=== PATIENT | male | born 1950 | race Caucasian/White ===

== ENCOUNTER → 2016-09-10 | Outpatient (REF) | payer OTHER ==
[2016-09-10 11:45] LABS: ALBUMIN 3.8 GM/DL (3.2-5.2); ALBUMIN/GLOBULIN RATIO 1.31 (1.00-1.93); ALKALINE PHOSPHATASE 87 U/L (45-117); ALT/SGPT 39 U/L (12-78); ANION GAP 8 MEQ/L (8-16); AST/SGOT 16 U/L (15-37); BILIRUBIN,TOTAL 0.6 MG/DL (0.2-1.0); BLOOD UREA NITROGEN 20 MG/DL (7-18); CALCIUM LEVEL 9.6 MG/DL (8.8-10.2); CARBON DIOXIDE LEVEL 29 MEQ/L (21-32); CHLORIDE LEVEL 105 MEQ/L (98-107); CHOLESTEROL LEVEL 201 MG/DL (<200); CREATININE FOR GFR 1.17 MG/DL (0.70-1.30); GLOMERULAR FILTRATION RATE > 60.0 (>49); GLUCOSE, FASTING 98 MG/DL (80-110); SODIUM LEVEL 142 MEQ/L (136-145); TOTAL PROTEIN 6.7 GM/DL (6.4-8.2); TRIGLYCERIDES LEVEL 145 MG/DL (<150)
[2016-09-10 11:47] LABS: MEAN CORPUSCULAR HEMOGLOBIN 31.3 pg (27.0-33.0); MEAN CORPUSCULAR HGB CONC 35.5 g/dl (32.0-36.5); MEAN CORPUSCULAR VOLUME 88.3 fl (80.0-96.0); RED CELL DISTRIBUTION WIDTH 12.7 % (11.5-14.5); WHITE BLOOD COUNT 6.7 K/mm3 (4.0-10.0)
== END ==
LOC: M SFHCLERA 09:28
PROVIDERS: ATTEND Family Medicine
DX: I10 Essential (primary) hypertension (principal); E78.2 Mixed hyperlipidemia

== ENCOUNTER → 2017-01-05 | Outpatient (CLI) | payer OTHER | LOC: M SMT 11:57 | PROVIDERS: ATTEND Nurse Practitioner Family | DX: Z12.5 Encounter for screening for malignant neoplasm of prostate (principal) | CPT/HCPCS: 36415; G0103 ==

== ENCOUNTER → 2017-10-06 | Outpatient (CLI) | payer OTHER | LOC: M LRY 12:17 | DX: M79.641 Pain in right hand (principal) | CPT/HCPCS: 73130; G0463 ==

== ENCOUNTER → 2017-10-20 | Outpatient (REF) | payer OTHER ==
[2017-10-20 11:41] LABS: HEMATOCRIT 39.1 % (42.0-52.0); HEMOGLOBIN 13.7 g/dl (14.0-18.0); MEAN CORPUSCULAR HEMOGLOBIN 30.6 pg (27.0-33.0); MEAN CORPUSCULAR VOLUME 87.5 fl (80.0-96.0); PLATELET COUNT, AUTOMATED 178 10^3/uL (150-450); RED BLOOD COUNT 4.47 10^6/uL (4.30-6.10); RED CELL DISTRIBUTION WIDTH 12.9 % (11.5-14.5); WHITE BLOOD COUNT 7.8 10^3/uL (4.0-10.0)
[2017-10-20 11:53] LABS: ESTIMATED AVERAGE GLUCOSE 111 MG/DL (60-110); HEMOGLOBIN A1c 5.5 %
[2017-10-20 12:16] LABS: ALBUMIN 3.6 GM/DL (3.2-5.2); ALBUMIN/GLOBULIN RATIO 1.16 (1.00-1.93); ALKALINE PHOSPHATASE 67 U/L (45-117); ALT/SGPT 32 U/L (12-78); ANION GAP 6 MEQ/L (8-16); AST/SGOT 17 U/L (7-37); BILIRUBIN,TOTAL 0.5 MG/DL (0.2-1.0); BLOOD UREA NITROGEN 28 MG/DL (7-18); CARBON DIOXIDE LEVEL 30 MEQ/L (21-32); CHLORIDE LEVEL 104 MEQ/L (98-107); CHOLESTEROL LEVEL 124 MG/DL (<200); CHOLESTEROL RISK RATIO 2.883 (<5); CREATININE FOR GFR 1.16 MG/DL (0.70-1.30); GLOMERULAR FILTRATION RATE > 60.0 (>49); GLUCOSE, FASTING 94 MG/DL (70-100); HDL CHOLESTEROL 43 MG/DL (>40); NON-HDL-C 81 MG/DL; POTASSIUM SERUM 4.4 MEQ/L (3.5-5.1); RHEUMATOID FACTOR QUANT < 10.0 IU/ML (0-15.0); SODIUM LEVEL 140 MEQ/L (136-145); THYROID STIMULATING HORMONE 0.737 uIU/ML (0.358-3.740); TOTAL PROTEIN 6.7 GM/DL (6.4-8.2); TRIGLYCERIDES LEVEL 65 MG/DL (<150)
[2017-10-20 12:18] LABS: MALB URINE SIEMENS < 5.0 MG/L; MAU/CREAT RATIO 4.4 MCG/MG (0.0-30.0)
[2017-10-20 12:21] LABS: ERYTHROCYTE SEDIMENTATION RATE 15 mm/hr (0-20)
[2017-10-23 00:07] LABS: CYCLIC CITRULLINATED PEPTIDE 7 units (0-19)
[2017-10-23 00:07] LABS: ANTINUCLEAR ANTIBODIES DIRECT Negative (Negative)
== END ==
LOC: M SFHCLERA 09:41
DX: M79.641 Pain in right hand (principal); E66.01 Morbid (severe) obesity due to excess calories; Z79.899 Other long term (current) drug therapy
CPT/HCPCS: 84443

== ENCOUNTER → 2018-02-22 | Outpatient (CLI) | payer OTHER ==
[2018-02-22 19:36] LABS: PSA SCREENING 1.95 NG/ML (< 4.0)
== END ==
LOC: M SMT 15:16
DX: Z12.5 Encounter for screening for malignant neoplasm of prostate (principal)
CPT/HCPCS: G0103

== ENCOUNTER → 2018-05-06 | Outpatient (REF) | payer OTHER ==
[2018-05-06 18:27] LABS: BASO % 0.3 % (0.0-1.0); EOS # 0.2 10^3/uL (0.0-0.50); EOS % 2.1 % (0.0-3.0); HEMATOCRIT 42.2 % (42.0-52.0); HEMOGLOBIN 14.7 g/dl (13.5-17.5); IMMATURE GRANULOCYTE % 0.2 % (0-3.0); LYMPH # 1.9 10^3/uL (1.5-4.5); LYMPH % 21.8 % (24.0-44.0); MEAN CORPUSCULAR HEMOGLOBIN 31.7 pg (27.0-33.0); MEAN CORPUSCULAR HGB CONC 34.8 g/dl (32.0-36.5); MEAN CORPUSCULAR VOLUME 91.1 fl (80.0-96.0); MONO # 0.4 10^3/uL (0.0-0.8); MONO % 4.9 % (0.0-5.0); NEUTROPHILS # 6.3 10^3/uL (1.8-7.7); NEUTROPHILS % 70.7 % (36.0-66.0); PLATELET COUNT, AUTOMATED 187 10^3/uL (150-450); RED BLOOD COUNT 4.63 10^6/uL (4.30-6.10); RED CELL DISTRIBUTION WIDTH 12.6 % (11.5-14.5); WHITE BLOOD COUNT 8.9 10^3/uL (4.0-10.0)
== END ==
LOC: M SFHCLERA 12:31
DX: D64.9 Anemia, unspecified (principal)
CPT/HCPCS: 85025

== ENCOUNTER → 2018-10-25 | Outpatient (REF) | payer OTHER ==
[2018-10-25 16:43] LABS: BASO % 0.2 % (0.0-1.0); EOS # 0.2 10^3/uL (0.0-0.50); EOS % 1.9 % (0.0-3.0); HEMATOCRIT 39.4 % (42.0-52.0); HEMOGLOBIN 13.9 g/dl (13.5-17.5); LYMPH # 1.6 10^3/uL (1.5-4.5); LYMPH % 18.5 % (24.0-44.0); MEAN CORPUSCULAR HEMOGLOBIN 31.4 pg (27.0-33.0); MEAN CORPUSCULAR HGB CONC 35.3 g/dl (32.0-36.5); MEAN CORPUSCULAR VOLUME 88.9 fl (80.0-96.0); MONO # 0.4 10^3/uL (0.0-0.8); MONO % 5.1 % (0.0-5.0); NEUTROPHILS # 6.2 10^3/uL (1.8-7.7); NEUTROPHILS % 74.1 % (36.0-66.0); PLATELET COUNT, AUTOMATED 181 10^3/uL (150-450); RED BLOOD COUNT 4.43 10^6/uL (4.30-6.10); WHITE BLOOD COUNT 8.4 10^3/uL (4.0-10.0)
[2018-10-25 16:45] LABS: CHOLESTEROL RISK RATIO 3.285 (<5)
[2018-10-25 16:49] LABS: HEMOGLOBIN A1c 5.6 %
[2018-10-25 17:18] LABS: CREATININE, URINE 25.4 MG/DL; MALB URINE SIEMENS < 5.0 MG/L; MAU/CREAT RATIO 19.6 MCG/MG (0.0-30.0)
== END ==
LOC: M SFHCLERA 10:58
PROVIDERS: ATTEND Family Medicine
DX: I10 Essential (primary) hypertension (principal); D64.9 Anemia, unspecified

== ENCOUNTER → 2019-04-21 | Outpatient (REF) | payer MEDICARE ==
[2019-04-21 12:55] LABS: BLOOD UREA NITROGEN 18 MG/DL (7-18); CALCIUM LEVEL 9.3 MG/DL (8.8-10.2); CARBON DIOXIDE LEVEL 31 MEQ/L (21-32); CHLORIDE LEVEL 102 MEQ/L (98-107); GLOMERULAR FILTRATION RATE > 60.0 (>42); GLUCOSE, FASTING 108 MG/DL (70-100); POTASSIUM SERUM 3.8 MEQ/L (3.5-5.1); SODIUM LEVEL 140 MEQ/L (136-145)
== END ==
LOC: M SFHCLERA 10:04
PROVIDERS: ATTEND Family Medicine
DX: I10 Essential (primary) hypertension (principal)

== ENCOUNTER → 2019-11-19 | Outpatient (REF) | payer MEDICARE ==
[2019-11-19 18:24] LABS: ALBUMIN 3.8 GM/DL (3.2-5.2); ALT/SGPT 37 U/L (12-78); BILIRUBIN,TOTAL 0.9 MG/DL (0.2-1.0); BLOOD UREA NITROGEN 24 MG/DL (7-18); CALCIUM LEVEL 9.2 MG/DL (8.8-10.2); CARBON DIOXIDE LEVEL 31 MEQ/L (21-32); CHLORIDE LEVEL 102 MEQ/L (98-107); CHOLESTEROL LEVEL 139 MG/DL (<200); CHOLESTEROL RISK RATIO 3.475 (<5); CREATININE FOR GFR 1.21 MG/DL (0.70-1.30); GLOMERULAR FILTRATION RATE > 60.0 (>42); GLUCOSE, FASTING 95 MG/DL (70-100); HDL CHOLESTEROL 40 MG/DL (>40); LDL CHOLESTEROL 77 MG/DL (<100); NON-HDL-C 99 MG/DL; POTASSIUM SERUM 3.6 MEQ/L (3.5-5.1); SODIUM LEVEL 136 MEQ/L (136-145); TOTAL PROTEIN 7.1 GM/DL (6.4-8.2); TRIGLYCERIDES LEVEL 108 MG/DL (<150)
[2019-11-19 18:53] LABS: HEMOGLOBIN A1c 6.2 %
== END ==
LOC: M SFHCLERA 09:50
PROVIDERS: ATTEND Family Medicine
DX: I10 Essential (primary) hypertension (principal); E66.01 Morbid (severe) obesity due to excess calories; E78.5 Hyperlipidemia, unspecified

== ENCOUNTER → 2020-08-29 | Outpatient (CLI) | payer MEDICARE ==
[~2020-08-29] MED LIST: ATOR40TA75 PO; CHLO50TA PO; LOSA100T50 PO; METO50TA7 PO; MULT-90 PO; SODI5OPD OU; TIMO0.5S29 OU
== END ==
LOC: M LABSMTC 10:11
PROVIDERS: ATTEND Anesthesiology
DX: Z01.812 Encounter for preprocedural laboratory examination (principal); Z20.822 Contact with and (suspected) exposure to COVID-19

== ENCOUNTER 2020-09-03 07:06 | Day surgery (SDC) | payer MEDICARE ==
[~2020-09-03] VITALS: Ht 170.2 cm; Wt 106.6 kg
[~2020-09-03 07:06] MED LIST changes: +NS 1,000 ML IV ONE
--- OUTSIDE RECORDS SUMMARY | 2020-09-03 07:13 | CCD ---
Author Author [facility] Organization [facility] [employer] Address Unknown Phone Unavailable Care Team Providers Care Psychometric Examiner Name Role Phone Krzysztof Green Unavailable PROBLEMS Type Condition ICD9-CM Code UPG83-GH Code Onset Dates Condition S tatus SNOMED Code Notes Problem Adverse effect of angiotensi a-jcflobszim-czjiaq inhibitors, initial encounter T46.4X5A Active 547863464 Problem Erectile dysfunction, unspecified erectile dysfunction typ e N52.9 Active 384530006 Problem Mixed hyperlipidemia E78.2 Active 624052353 Problem Cough R05 Active 103605589 Problem Essential hypertension I10 Active 99188812 Problem Body mass index (BMI) of 35.0-35.9 in adult Z68.35 Active 256926588 Problem Obesity (BMI 35.0-39.9 without comorbidity) E66.9 Active 213528838 Problem Influenza vaccination declined Z28.21 Active 3 44448394 Problem Dyslipidemia E78.5 Active 635402847 Problem Bilateral hearing loss, unspecified hearing loss type H91.93 Active 01859981 Problem Morbid (severe) obesity due to excess calories E66 .01 Active 268760817 Problem Hand arthritis M19.049 Active 023067047 Problem 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 A ctive 2471018568815 Problem Prostate cancer screening Z12.5 Active 776492 002 Problem Arthritis M19.90 Active 7207793 ALLERGIES Allergen (clinical drug ingredient) Drug/Non Drug Allergy do cumented on EMR Reaction Allergy Type Onset Date Status Stanley inhibitor (for allergies use only) dry cough Drug All ergy Active ENCOUNTERS from 1950 to 2020-06-06 Encounter Location Date Provider Diagnosis [facility] [address] [place] [address] May, Krzysztof Green Low blood potassium E87.6 IMMUNIZATIONS Vaccine Route Administration Date Status Influenza (Pharmacy Given) Unknown Jun 28, 2018 Admin istered Influenza (18 yrs & older) Flublok IM Intramuscular May 21, 2020 Administered Zoster 50mcg/0.5mL (Shingrix) Unknown Jun 22, 2018 Ad ministered Influenza (High Dose 65 & up) Unknown May 02, 2017 Ad ministered Pneumococcal Adult 0.5mL (Pneumovax 23) IM Intramuscular May 21, 2020 Administered TDAP 0.5mL (Boostrix) IM Intramuscular May 02, 2019 Administe red Pneumococcal 0.5mL (Prevnar 13) IM Intramuscular November 03, 2018 Administered Influenza (6mo & up) Fluzone Unknown May 16, 2016 Adm inistered SOCIAL HISTORY Tobacco Use: Social History Observation Description Date Details (start date - stop date) Never Smoker Sex Assigned At : Social History Observation Description Sex Assigned At Unknown Education: Question Answer Notes Level of Education: High School Audit Question Answer Notes Total Score: 0 Interpretation: Alcohol Education Language: Question Answer Notes Languages spoken: Divehi Yazidism: Question Answer Notes Yazidism 21 Taoism Drug and Alcohol Question Answer Notes Total Score: 0 Interpretation: No problems reported Alcohol Screening: Question Answer Notes Did you have a drink containing alcohol in the past year? No Points 0 Interpretation Negative BMI Care Goal Follow-Up Question Answer Notes Above Normal BMI Follow-Up Dietary management educatio n, guidance, and counseling Tobacco Use: Question Answer Notes Are you a: never smoker REASON FOR REFERRAL No Information VITAL SIGNS No information MEDICATIONS Medication SIG (Take, Route, Frequency, Duration) Start Date En d Date Status Sodium Chloride (Hypertonic) 1 drop into each eye Ophthalmic Twice a day Active Chlorthalidone 50 MG 1 tablet in the morning Orally Once a day Active Metoprolol Tartrate 50 MG 1 tablet with food Twice a d ay Orally 90 day(s) Orally Twice a day Active Timolol Maleate 0.5 % 1 drop into each eye Ophthalmic Once a day Active Maria Fernanda 128 5 % 1 drop into each eye Ophthalmic Once a day Active Atorvastatin Calcium 40 MG 1 tablet Orally before bedtime Active Shingrix 50 mcg/0.5 mL As Directed Intramuscular as directed for 2 doses Nov, Not-Taking Multivitamin Adult - Orally May, Active Losartan Potassium 100 MG 1 tablet Orally Once a day Active Viagra 100 MG 1 tablet as needed Orally On ce a day-start with 1/4 tablet and titrate up as needed December, Not-Taking PROCEDURES No Information RESULTS No Results REASON FOR VISIT Lab results MEDICAL (GENERAL) HISTORY Type Description Date Medical History Hyperlipidemea Medical History Erectile dysfunction Medical History HTN, goal 140/90 Medical History short leg right, lift 1 inch a 1/4 Medical History Dry eyes Surgical History right knee replacement 03/18/16 Surgical History fx both femers 05/1966 Surgical History rx jaw 05/1966 Surgical History fx arm left 05/1966 Surgical History fx skull 05/1966 Surgical History colonoscopy - weld 2014 Hospitalization History weld - hernia Goals Section No Information Health Concerns No Information MEDICAL EQUIPMENT No Information MENTAL STATUS No Information FUNCTIONAL STATUS No Information ASSESSMENTS Encounter Date Diagnosis Notes May, Low blood potassium (ICD-10 - E87.6) PLAN OF TREATMENT Future Test Test Name Order Date Basic Metabolic Profile (BMP) [id number] Next Appt Details Provider Name:Krzysztof Green, 2020-11-20 01:00:00 PM, [address] [place], [address], Insurance Providers Payer Name Payer Address Payer Phone Insured Name Patient Relati onship to Insured Coverage Start Date Coverage End Date Responsa PLANS [address] [address] [facility] [phone] [employer]
--- OUTSIDE RECORDS SUMMARY | 2020-09-03 07:13 | CCD ---
Author Author [facility] Organization [facility] Address Unknown Phone Unavailable Care Team Providers Care Range Examiner Name Role Phone Pati Mendez MD Unavailable Unavailable Pati Mendez MD Unavailable Unavailable Pati Mendez MD Unavailable Unavailable Pati Mendez MD Unavailable Unavailable Pati Mendez MD Unavailable Unavailable Pati Mendez MD Unavailable Unavailable Pati Mendez MD Unavailable Unavailable Pati Mendez MD Unavailable Unavailable Pati Mendez MD Unavailable Unavailable Pati Mendez MD Unavailable Unavailable Pati Mendez MD Unavailable Unavailable Pati Mendez MD Unavailable Unavailable Pati Mendez MD Unavailable Unavailable Pati Mendez MD Unavailable Unavailable AbrissPati MD Unavailable Unavailable AbrissPati MD Unavailable Unavailable AbrissPati MD Unavailable Unavailable AbrissPati MD Unavailable Unavailable Buniak, Borevans NEWSOME Unavailable Unavailable Buniak, Borys Unavailable Unavailable Buniak, Borys Unavailable Unavailable Buniak, Borys Unavailable Unavailable Buniak, Borys MD Unavailable Unavailable Buniak, Borys MD Unavailable Unavailable Buniak, Borys Unavailable Unavailable Buniak, Borys Unavailable Unavailable Buniak, Borys MD Unavailable Unavailable Buniak, Borys MD Unavailable Unavailable Buniak, Borys MD Unavailable Unavailable Buniak, Borys MD Unavailable Unavailable Buniak, Borys MD Unavailable Unavailable Buniak, Borys MD Unavailable Unavailable Buniak, Borys MD Unavailable Unavailable Buniak, Borys MD Unavailable Unavailable Buniak, Borys MD Unavailable Unavailable Buniak, Borys MD Unavailable Unavailable Buniak, Borys MD Unavailable Unavailable Buniak, Borys MD Unavailable Unavailable Buniak, Borys Unavailable Unavailable Buniak, Borys MD Unavailable Unavailable Buniak, Borys MD Unavailable Unavailable Buniak, Borys MD Unavailable Unavailable Buniak, Borys MD Unavailable Unavailable Buniak, Borys MD Unavailable Unavailable Buniak, Borys MD Unavailable Unavailable Buniak, Borys Unavailable Unavailable Buniak, Borys MD Unavailable Unavailable Buniak, Borys Unavailable Unavailable Buniak, Borys MD Unavailable Unavailable Buniak, Borys Unavailable Unavailable Buniak, Borys Unavailable Unavailable Buniak, Borys Unavailable Unavailable Buniak, Borys Unavailable Unavailable Buniak, Borys Unavailable Unavailable Buniak, Borys Unavailable Unavailable Buniak, Borys MD Unavailable Unavailable Buniak, Borys MD Unavailable Unavailable Buniak, Borys Unavailable Unavailable Buniak, Borys Unavailable Unavailable Buniak, Borys Unavailable Unavailable Buniak, Borys Unavailable Unavailable Buniak, Borys Unavailable Unavailable Buniak, Borys Unavailable Unavailable Buniak, Borys Unavailable Unavailable Buniak, Borys Unavailable Unavailable Buniak, Borys Unavailable Unavailable Buniak, Borys Unavailable Unavailable Buniak, Borys Unavailable Unavailable Buniak, Borys Unavailable Unavailable Buniak, Borys MD Unavailable Unavailable Buniak, Borys MD Unavailable Unavailable Buniak, Borys MD Unavailable Unavailable Buniak, Borys MD Unavailable Unavailable Buniak, Borys MD Unavailable Unavailable Buniak, Borys MD Unavailable Unavailable Buniak, Borys MD Unavailable Unavailable Buniak, Borys MD Unavailable Unavailable Buniak, Borys MD Unavailable Unavailable Buniak, Borys MD Unavailable Unavailable Buniak, Borys MD Unavailable Unavailable Buniak, Borys MD Unavailable Unavailable Buniak, Borys MD Unavailable Unavailable Buniak, Borys MD Unavailable Unavailable Buniak, Borys MD Unavailable Unavailable Buniak, Borys MD Unavailable Unavailable Buniak, Borys MD Unavailable Unavailable Buniak, Borys MD Unavailable Unavailable Buniak, Borys MD Unavailable Unavailable Buniak, Borys MD Unavailable Unavailable Buniak, Borys MD Unavailable Unavailable Buniak, Borys MD Unavailable Unavailable Buniak, Borys MD Unavailable Unavailable Buniak, Borys MD Unavailable Unavailable Buniak, Borys MD Unavailable Unavailable Buniak, Borys MD Unavailable Unavailable Buniak, Borys MD Unavailable Unavailable Buniak, Borys MD Unavailable Unavailable Buniak, Borys MD Unavailable Unavailable Buniak, Borys MD Unavailable Unavailable Buniak, Borys MD Unavailable Unavailable Buniak, Borys MD Unavailable Unavailable Buniak, Borys MD Unavailable Unavailable Buniak, Borys MD Unavailable Unavailable Buniak, Borys MD Unavailable Unavailable Buniak, Borys MD Unavailable Unavailable Buniak, Borys MD Unavailable Unavailable Buniak, Borys MD Unavailable Unavailable Buniak, Borys MD Unavailable Unavailable Buniak, Borys MD Unavailable Unavailable Buniak, Borys MD Unavailable Unavailable Buniak, Borys Unavailable Unavailable Buniak, Borys MD Unavailable Unavailable RAN PERAZA MD Unavailable Unavailable RAN PERAZA MD Unavailable Unavailable RAN PERAZA MD Unavailable Unavailable RAN PERAZA MD Unavailable Unavailable RAN PERAZA MD Unavailable Unavailable RAN PERAZA MD Unavailable Unavailable RAN PERAZA MD Unavailable Unavailable RAN PERAZA MD Unavailable Unavailable RAN PERAZA MD Unavailable Unavailable RAN PERAZA MD Unavailable Unavailable RAN PERAZA MD Unavailable Unavailable RAN PERAZA MD Unavailable Unavailable RAN PERAZA MD Unavailable Unavailable RAN PERAZA MD Unavailable Unavailable PERAZARAN MD Unavailable Unavailable PERAZARAN MD Unavailable Unavailable PERAZARAN MD Unavailable Unavailable PERAZARAN MD Unavailable Unavailable PERAZA, RAN NORTON MD Unavailable Unavailable PERAZA, RAN NORTON MD Unavailable Unavailable PERAZARAN MD Unavailable Unavailable PERAZARAN MD Unavailable Unavailable PERAZARAN MD Unavailable Unavailable PERAZARAN MD Unavailable Unavailable PERAZARAN MD Unavailable Unavailable PERAZARAN MD Unavailable Unavailable PERAZARAN MD Unavailable Unavailable PERAZA, RAN NORTON MD Unavailable Unavailable PERAZARAN MD Unavailable Unavailable PERAZA, RAN NORTON MD Unavailable Unavailable PERAZARAN MD Unavailable Unavailable PERAZA, RAN NORTON MD Unavailable Unavailable PERAZA, RAN NORTON MD Unavailable Unavailable PERAZA, RAN NORTON MD Unavailable Unavailable PERAZARAN MD Unavailable Unavailable PERAZARAN MD Unavailable Unavailable PERAZARAN MD Unavailable Unavailable PERAZARAN MD Unavailable Unavailable PERAZARAN MD Unavailable Unavailable PERAZARAN ONEILL MD Unavailable Unavailable Shambo, Geovanny Borja MD Unavailable Unavailable Shambo, Geovanny Borja MD Unavailable Unavailable Shambo, Geovanny Borja MD Unavailable Unavailable Shambo, Geovanny Borja MD Unavailable Unavailable Shambo, Geovanny Borja MD Unavailable Unavailable Shambo, Geovanny Borja MD Unavailable Unavailable Shambo, Geovanny Borja MD Unavailable Unavailable Shambo, Geovanny Borja MD Unavailable Unavailable Shambo, Geovanyn Borja MD Unavailable Unavailable Shambo, Geovanny Borja MD Unavailable Unavailable Shambo, Geovanny Borja MD Unavailable Unavailable Shambo, Geovanny Borja MD Unavailable Unavailable Shambo, Geovanny Borja MD Unavailable Unavailable Shambo, Geovanny Borja MD Unavailable Unavailable Shambo, Geovanny Borja MD Unavailable Unavailable Shambo, Geovanny Borja MD Unavailable Unavailable Shambo, Geovanny Borja MD Unavailable Unavailable Shambo, Geovanny Borja MD Unavailable Unavailable Shambo, Geovanny Borja MD Unavailable Unavailable Shambo, Geovanny Borja MD Unavailable Unavailable Shambo, Geovanny Borja MD Unavailable Unavailable Shambo, Geovanny oBrja MD Unavailable Unavailable Shambo, Geovanny Borja MD Unavailable Unavailable Shambo, Geovanny Borja MD Unavailable Unavailable Shambo, Geovanny oBrja MD Unavailable Unavailable Shambo, Geovanny Borja MD Unavailable Unavailable Shambo, Geovanny Borja MD Unavailable Unavailable Shambo, Geovanny Borja MD Unavailable Unavailable Shambo, Geovanny Borja MD Unavailable Unavailable Shambo, Geovanny Borja MD Unavailable Unavailable Shambo, Geovanny Borja MD Unavailable Unavailable Shambo, Geovanny Borja MD Unavailable Unavailable Shambo, Geovanny Borja MD Unavailable Unavailable Shambo, Geovanny Borja MD Unavailable Unavailable Shambo, Geovanny Borja MD Unavailable Unavailable Shambo, Geovanny Borja MD Unavailable Unavailable Shambo, Geovanny Borja MD Unavailable Unavailable Shambo, Geovanny Borja MD Unavailable Unavailable Shambo, Geovanny Borja MD Unavailable Unavailable Shambo, Geovanny Borja MD Unavailable Unavailable Shambo, Geovanny Borja MD Unavailable Unavailable Shambo, Geovanny Borja MD Unavailable Unavailable Shambo, Geovanny Borja MD Unavailable Unavailable Shambo, Geovanny Borja MD Unavailable Unavailable Shambo, Geovanny Borja MD Unavailable Unavailable Shambo, Geovanny Bojra MD Unavailable Unavailable Shambo, Geovanny Borja MD Unavailable Unavailable Shambo, Geovanny Borja MD Unavailable Unavailable Shambo, Geovanny Borja MD Unavailable Unavailable Shambo, Geovanny Borja MD Unavailable Unavailable Shambo, Geovanny Borja MD Unavailable Unavailable Shambo, Geovanny Borja MD Unavailable Unavailable Shambo, Geovanny Borja MD Unavailable Unavailable Shambo, Geovanny Borja MD Unavailable Unavailable Shambo, Geovanny Borja MD Unavailable Unavailable Shambo, Geovanny Borja MD Unavailable Unavailable Shambo, Geovanny Borja MD Unavailable Unavailable Shambo, Geovanny Borja MD Unavailable Unavailable Shambo, Geovanny Broja MD Unavailable Unavailable Shambo, Geovanny Borja MD Unavailable Unavailable Shambo, Geovanny Borja MD Unavailable Unavailable Shambo, Geovanny Borja MD Unavailable Unavailable Shambo, Geovanny Borja MD Unavailable Unavailable Re-disclosure Warning The records that you are about to access may contain information from federally-assisted alcohol or drug abuse programs. If such information is present, then the following federally mandated warning applies: This information has been disclosed to you from records protected by federal confidentiality rules (42 CFR part 2). The federal rules prohibit you from making any further disclosure of this information unless further disclosure is expressly permitted by the written consent of the person to whom it pertains or as otherwise permitted by 42 CFR part 2. A general authorization for the release of medical or other information is NOT sufficient for this purpose. The Federal rules restrict any use of the information to criminally investigate or prosecute any alcohol or drug abuse patient.The records that you are about to access may contain highly sensitive health information, the redisclosure of which is protected by Article 27-F of the [facility] Public Health law. If you continue you may have access to information: Regarding HIV / AIDS; Provided by facilities licensed or operated by the [facility] Office of Mental Health; or Provided by the [facility] Office for People With Developmental Disabilities. If such information is present, then the following [facility] mandated warning applies: This information has been disclosed to you from confidential records which are protected by state law. State law prohibits you from making any further disclosure of this information without the specific written consent of the person to whom it pertains, or as otherwise permitted by law. Any unauthorized further disclosure in violation of state law may result in a fine or retirement sentence or both. A general authorization for the release of medical or other information is NOT sufficient authorization for further disc losure. Allergies and Adverse Reactions Type Description Substance Reaction Status Data Source(s ) Stanley inhibitor (for allergies use only) Stanley inhibitor (for al lergies use only) Stanley inhibitor (for allergies use only) dry cough Active e CW1 ([facility]) Stanley inhibitor (for allergies use only) Stanley inhibitor (for al lergies use only) Stanley inhibitor (for allergies use only) dry cough Active e CW1 ([facility]) Family History Family Member Name Family Member Gender Family Member Status Date o f Status Description Data Source(s) Unknown Male Problem MEDENT ([facility]) Unknown Female Encounters Encounter Providers Location Date Indications Data Source(s ) Attender: Chris Hanson: Jonh Huff MD 07/18/2020 08:20:12 PM EST [facility] Attender: Chris Hanson: Jonh Huff MD 07/18/2020 08:20:12 PM EST [facility] [place] [address] [address] 07/06/2020 12:00:00 AM EST eCW1 ([facility]) [place] [address] [address] 06/12/2020 12:00:00 AM EDT eCW1 ([facility]) [place] [address] [address] 06/04/2020 12:00:00 AM EDT eCW1 ([facility]) Outpatient Attender: ERROL PERAZA MDConsultant: ERROL Guaman MD 05/25/2020 07:57:00 AM EDT - 05/25/2020 08:57:00 AM EDT [facility] [place] [address] [address] 02/08/2020 12:00:00 AM EDT eCW1 ([facility]) [place] [address] [address] 01/29/2020 12:00:00 AM EDT eCW1 ([facility]) [facility] [place] [address] [address] 11/24/2019 12:00:00 AM EDT eCW1 ([facility]) [facility] [address] [address] 11/24/2019 12:00:00 AM EDT eCW1 ([facility]) Outpatient Attender: Kwan Green/Jasbir/Jayson/Lisa indl 09/14/2019 12:00:00 PM EST MEDENT ([facility]) [facility] [address] [place] [address] 07/13/2019 12:00:00 AM EST eCW1 ([facility]) Immunizations Vaccine Date Status Description Data Source(s) pneumococcal polysaccharide PPV23 05/21/2020 12:02:00 PM EDT comple palma eCW1 ([facility]) influenza, recombinant, quadrIvalent,injectable, prese rvative free 05/21/2020 12:02:00 PM EDT completed eCW1 ([facility]) pneumococcal polysaccharide PPV23 05/21/2020 12:02:00 PM EDT comple palma eCW1 ([facility]) influenza, recombinant, quadrIvalent,injectable, prese rvative free 05/21/2020 12:02:00 PM EDT completed eCW1 ([facility]) pneumococcal polysaccharide PPV23 05/21/2020 12:02:00 PM EDT comple palma eCW1 ([facility]) influenza, recombinant, quadrIvalent,injectable, prese rvative free 05/21/2020 12:02:00 PM EDT completed eCW1 ([facility]) Medications Medication Brand Name Start Date Product Form Dose Route Admi nistrative Instructions Pharmacy Instructions Status Indications Reaction Description Data Source(s) Bisacodyl 5 MG Delayed Release Oral Tablet [Dulcolax] Dulcol ax 07/30/2020 12:00:00 AM EST ORAL active M EDENT ([facility], ) Suprep Bowel Prep Kit Suprep Bowel Prep Kit 07/30/2020 12:00:00 AM EST active MEDENT ([facility], ) 17.5-3.13-1.6 gram 07/30/2020 12:00:00 AM EST recon soln 354 TAKE BY MOUTH PER DOCTORS BOWEL PREP INSTRUCTIONS TAKE BY MOUTH PER DOCTORS BOWEL PREP INSTRUCTIONS SOLD: 08/02/2020 [facility] 50 mg 07/16/2020 12:00:00 AM EST tablet 180 TAKE ONE TABLET BY MOUTH TWICE A DAY WITH FOOD TAKE ONE TABLET BY MOUTH TWICE A DAY WITH FOOD SOLD: 020 [facility] 0.3-0.1 % 06/22/2020 12:00:00 AM EST ointment 3 APPLY 1/4 STRIP IN THE RIGHT EYE TWO TIMES A DAY APPLY 1/4 STRIP IN THE RIGHT EYE TWO TIMES A DAY SOLD: 06/22/2020 [facility] 0.5 % 05/03/2020 12:00:00 AM EDT drops 10 INSTILL ONE DROP IN EACH EYE EVERY MORNING DIRECTED INSTILL ONE DROP IN EACH EYE EVERY MORNING DIRECTED SOLD: 05/03/2020 [facility] 0.5 % 05/03/2020 12:00:00 AM EDT drops 10 INSTILL ONE DROP IN EACH EYE EVERY MORNING DIRECTED INSTILL ONE DROP IN EACH EYE EVERY MORNING DIRECTED SOLD: 07/18/2020 [facility] 100 mg 04/26/2020 12:00:00 AM EDT tablet 90 TAKE ONE TABLET BY MOUTH EVERY DAY TAKE ONE TABLET BY MOUTH EVERY DAY SOLD: 05/03/2020 [facility] atorvastatin 40 MG Oral Tablet ATORVASTATIN CALCIUM 04/26/2020 1 2:00:00 AM EDT tablet 90 TAKE ONE TABLET BY MOUTH AT BEDT DENNIS TAKE ONE TABLET BY MOUTH AT BEDTIME SOLD: 05/03/2020 [facility] 50 mg 04/26/2020 12:00:00 AM EDT tablet 90 TAKE ONE TABLET BY MOUTH EVERY DAY IN THE MORNING TAKE ONE TABLET BY MOUTH EVERY DAY IN THE MORNING SOLD : 05/03/2020 [facility] 50 mg 04/26/2020 12:00:00 AM EDT tablet 90 TAKE ONE TABLET BY MOUTH EVERY DAY IN THE MORNING TAKE ONE TABLET BY MOUTH EVERY DAY IN THE MORNING SOLD : 08/02/2020 [facility] atorvastatin 40 MG Oral Tablet ATORVASTATIN CALCIUM 04/26/2020 1 2:00:00 AM EDT tablet 90 TAKE ONE TABLET BY MOUTH AT BEDT DENNIS TAKE ONE TABLET BY MOUTH AT BEDTIME SOLD: 08/02/2020 [facility] 100 mg 04/26/2020 12:00:00 AM EDT tablet 90 TAKE ONE TABLET BY MOUTH EVERY DAY TAKE ONE TABLET BY MOUTH EVERY DAY SOLD: 08/02/2020 [facility] 50 mg 01/30/2020 12:00:00 AM EDT tablet 180 TAKE ONE TABLET BY MOUTH TWICE A DAY WITH FOOD TAKE ONE TABLET BY MOUTH TWICE A DAY WITH FOOD SOLD: 020 [facility] 50 mg 01/30/2020 12:00:00 AM EDT tablet 180 TAKE ONE TABLET BY MOUTH TWICE A DAY WITH FOOD TAKE ONE TABLET BY MOUTH TWICE A DAY WITH FOOD SOLD: 020 [facility] 1 % 01/29/2020 12:00:00 AM EDT drops,suspension 5 INSTILL ONE DROP IN THE RIGHT EYE FOUR TIMES A DAY DIRECTED INSTILL ONE DROP IN THE RIGHT EYE FOUR TIMES A DAY DIRECTED SOLD: 03/24/2020 [facility] 1 % 01/29/2020 12:00:00 AM EDT drops,suspension 5 INSTILL ONE DROP IN THE RIGHT EYE FOUR TIMES A DAY DIRECTED INSTILL ONE DROP IN THE RIGHT EYE FOUR TIMES A DAY DIRECTED SOLD: 01/30/2020 [facility] 5 % 01/16/2020 12:00:00 AM EDT drops 15 INSTILL ONE DROP INTO BOTH EYES FOUR TIMES A DAY INSTILL ONE DROP INTO BOTH EYES FOUR TIMES A DAY SOLD: 03/24 [facility] 5 % 01/16/2020 12:00:00 AM EDT drops 15 INSTILL ONE DROP INTO BOTH EYES FOUR TIMES A DAY INSTILL ONE DROP INTO BOTH EYES FOUR TIMES A DAY SOLD: 01/20 [facility] 5 % 01/16/2020 12:00:00 AM EDT drops 15 INSTILL ONE DROP INTO BOTH EYES FOUR TIMES A DAY INSTILL ONE DROP INTO BOTH EYES FOUR TIMES A DAY SOLD: 07/18 [facility] 1 % 12/16/2019 12:00:00 AM EDT drops,suspension 5 INSTILL 1 DROP INTO RIGHT EYE FOUR TIMES A DAY INSTILL 1 DROP INTO RIGHT EYE FOUR TIMES A DAY SOLD: 01/16/2020 [facility] 1 % 12/16/2019 12:00:00 AM EDT drops,suspension 5 INSTILL 1 DROP INTO RIGHT EYE FOUR TIMES A DAY INSTILL 1 DROP INTO RIGHT EYE FOUR TIMES A DAY SOLD: 12/16/2019 [facility] 40 mg 10/21/2019 12:00:00 AM EST tablet 90 TAKE ONE TABLET BY MOUTH AT BEDTIME TAKE ONE TABLET BY MOUTH AT BEDTIME SOLD: 01/21/2020 [facility] Losartan Potassium 100 MG Oral Tablet LOSARTAN POTASSIUM 12:00:00 AM EST tablet 90 TAKE ONE TABLET BY MOUTH JEN TAKE ONE TABLET BY MOUTH EVERY DAY SOLD: 10/27/2019 [facility] 50 mg 10/21/2019 12:00:00 AM EST tablet 90 TAKE ONE TABLET BY MOUTH EVERY DAY IN THE MORNING TAKE ONE TABLET BY MOUTH EVERY DAY IN THE MORNING SOLD : 10/27/2019 [facility] 40 mg 10/21/2019 12:00:00 AM EST tablet 90 TAKE ONE TABLET BY MOUTH AT BEDTIME TAKE ONE TABLET BY MOUTH AT BEDTIME SOLD: 10/27/2019 [facility] 50 mg 10/21/2019 12:00:00 AM EST tablet 180 TAKE ONE TABLET BY MOUTH TWICE A DAY WITH FOOD TAKE ONE TABLET BY MOUTH TWICE A DAY WITH FOOD SOLD: 020 [facility] 100 mg 10/21/2019 12:00:00 AM EST tablet 90 TAKE ONE TABLET BY MOUTH EVERY DAY TAKE ONE TABLET BY MOUTH EVERY DAY SOLD: 01/21/2020 [facility] 50 mg 10/21/2019 12:00:00 AM EST tablet 90 TAKE ONE TABLET BY MOUTH EVERY DAY IN THE MORNING TAKE ONE TABLET BY MOUTH EVERY DAY IN THE MORNING SOLD : 01/21/2020 [facility] 50 mg 07/25/2019 12:00:00 AM EST tablet 180 TAKE ONE TABLET BY MOUTH TWICE A DAY WITH FOOD TAKE ONE TABLET BY MOUTH TWICE A DAY WITH FOOD SOLD: 019 [facility] 40 mg 04/21/2019 12:00:00 AM EDT tablet 90 TAKE ONE TABLET BY MOUTH AT BEDTIME TAKE ONE TABLET BY MOUTH AT BEDTIME SOLD: 07/28/2019 [facility] Losartan Potassium 100 MG Oral Tablet LOSARTAN POTASSIUM 12:00:00 AM EDT tablet 90 TAKE ONE TABLET BY MOUTH JEN TAKE ONE TABLET BY MOUTH EVERY DAY SOLD: 07/28/2019 [facility] 50 mg 04/21/2019 12:00:00 AM EDT tablet 90 TAKE ONE TABLET BY MOUTH EVERY MORNING TAKE ONE TABLET BY MOUTH EVERY MORNING SOLD: 07/28/2019 [facility] 0.5 % 04/20/2019 12:00:00 AM EDT drops 10 INSTILL 1 DROP INTO BOTH EYES EVERY MORNING DIRECTED INSTILL 1 DROP INTO BOTH EYES EVERY MORN ING DIRECTED SOLD: 01/16/2020 [facility] 0.5 % 04/20/2019 12:00:00 AM EDT drops 10 INSTILL 1 DROP INTO BOTH EYES EVERY MORNING DIRECTED INSTILL 1 DROP INTO BOTH EYES EVERY MORN ING DIRECTED SOLD: 07/28/2019 [facility] 5 % 04/12/2019 12:00:00 AM EDT ointment 3 APPLY A SMALL AMOUNT INTO BOTH EYES AT BEDTIME DIRECTED APPLY A SMALL AMOUNT INTO BOTH EYES AT B EDTIME DIRECTED SOLD: 07/28/2019 [facility] 5 % 04/12/2019 12:00:00 AM EDT drops 15 INSTILL 1 DROP INTO BOTH EYES FOUR TIMES A DAY INSTILL 1 DROP INTO BOTH EYES FOUR TIMES A DAY SOLD: 07/28/2019 [facility] 5 % 04/12/2019 12:00:00 AM EDT drops 15 INSTILL 1 DROP INTO BOTH EYES FOUR TIMES A DAY INSTILL 1 DROP INTO BOTH EYES FOUR TIMES A DAY SOLD: 09/26/2019 [facility] 5 % 04/12/2019 12:00:00 AM EDT drops 15 INSTILL 1 DROP INTO BOTH EYES FOUR TIMES A DAY INSTILL 1 DROP INTO BOTH EYES FOUR TIMES A DAY SOLD: 11/15/2019 [facility] Insurance Providers Payer name Policy type / Coverage type Policy ID Covered green party ID Covered green party's relationship to hercules Policy [place] Plan Information WELLCARE [id number] SP [id number] WELLCARE [id number] SP [id number] [employer] MEDICARE [id number] WELLCARE -O/P [id number] 18 [id number] TODA[place] [id number] [place] [id number] ANSI-Medicare Part B [id number] ANSI-Medicare Part B [id number] Todays Options Medicare Adv Plan F [id number] SELF [id number] Medicare Blue Ppo Commercial [id number] Self [id number] Todays Options Of [place] Commercial [id number] Self [id number] [place] PPO [id number] SP [id number] State Ins Fund (WC) Workers Compensation Self STATE INSURANCE FUND O [id number] S [id number] Blue Shield Medicare P [id number] SELF [id number] WORKER'S COMP [id number] Emp [id number] [employer] INSURANCE FUND -RECUR [id number] 18 [id number] WORKER'S COMP [id number] Emp [id number] Blue Shield Medicare P [id number] SELF [id number] MEDICARE BLUE PPO [id number] SP [id number] Medicare Blue Ppo Commercial Self MEDICARE BLUE PPO [id number] SP [id number] [facility]-O/P [id number] 18 [id number] Problems, Conditions, and Diagnoses Code Display Name Description Problem Type Effective Dates Data Source(s) [id number] Essential hypertension Essential hypertension Problem 08/19/2019 12:00:00 AM NAV [place] ([facility] ) H91.93 [id number] Bilateral hearing loss, unspecified heari ng loss type Problem 07/13/2019 12:00:00 AM EST eCW1 ([facility]) H91.93 [id number] Bilateral hearing loss, unspecified heari ng loss type Problem 07/13/2019 12:00:00 AM EST eCW1 ([facility]) I10 Essential (primary) hypertension Essential (primary) h ypertension Diagnosis 05/25/2020 07:57:00 AM EDT [facility] [id number] Impaired fasting glucose Impaired fasting glucose Diag nosis 05/25/2020 07:57:00 AM EDT [facility] E785 Hyperlipidemia, unspecified Hyperlipidemia, unspecifie d Diagnosis 05/25/2020 07:57:00 AM EDT [facility] Surgeries/Procedures Procedure Description Date Indications Data Source(s) PHYSICIAN TELEPHONE EVALUATION 11-20 MIN 11/24/2019 12 :00:00 AM EDT eCW1 ([facility]) Results ID Date Data Source [id number] 08/29/2020 10:00:00 AM EST [facility] Name Value Range Interpretation Code Description Data Cassandra rce(s) Supporting Document(s) SARS coronavirus 2 RNA Not Detected [facility] This lab was ordered by [facility] and reported by [facility]. ID Date Data Source [id number] 05/25/2020 08:43:00 AM EDT [facility] Name Value Range Interpretation Code Description Data Cassandra rce(s) Supporting Document(s) BASIC METABOLIC PANEL [facility] BASIC METABOLIC PANEL Sodium [Moles/volume] in Serum or Plasma 140 mEq/L 134 - 153 [facility] Potassium [Moles/volume] in Serum or Plasma 3.4 mEq/L 3.6 - 5.0 L [facility] Chloride [Moles/volume] in Serum or Plasma 101 mEq/L 98 - 107 [facility] Carbon dioxide, total [Moles/volume] in Serum or Plasma 31 MEQ/L 22 - 30 H [facility] Glucose [Mass/volume] in Serum or Plasma 130 MG/DL 65 - 110 H [facility] BUN 22 MG/DL 7 - 21 H [facility] Creatinine [Mass/volume] in Serum or Plasma 1.1 MG/DL 0.7 - 1.5 [facility] BUN/CREAT 20 8 - 27 [facility] Calcium [Mass/volume] in Serum or Plasma 9.4 MG/DL 8.4 - 10.2 [facility] Anion gap 3 in Serum or Plasma 8.0 mmol/L 8.0 - 16.0 [facility] AGE 70 yrs [facility] AFR AMER GFR >60 mL/min [facility] NON-AA GFR >60 mL/min [facility] Male GFR Inter prentation 20-49 yrs >60 mL/min Normal 50-59 yrs >56 mL/min Normal 60-69 yrs >49 mL/min Normal 70-79yrs >42 mL/min Normal 80 and above >35 mL/min Normal Female GFR Interpretation 20-39 yrs >60 mL/min Normal 40-49 yrs >58 mL/min Normal 50-59 yrs >51 mL/min Normal 60-69 yrs >45 mL/min Normal 70-79 yrs >39 mL/min Normal 80 and above >32 mL/min Normal ID Date Data Source [id number] 05/25/2020 08:43:00 AM EDT [facility] Name Value Range Interpretation Code Description Data Cassandra rce(s) Supporting Document(s) CVE PANEL [facility] LIPID PANEL Cholesterol [Mass/volume] in Serum or Plasma 138 MG/DL 131 - 200 [facility] Deprecated Triglyceride [Mass/volume] in Serum or Plasma 120 MG/DL 3 5 - 160 [facility] HDL 41 MG/DL 29 - 86 [facility] Cholesterol in LDL [Mass/volume] in Serum or Plasma by Direc t assay 80 mg/dL 65 - 175 [facility] Cholesterol.total/Cholesterol in HDL [Mass Ratio] in Serum o r Plasma 3.4 3.4 - 4.9 L [facility] LDL/HDL 1.95 1.00 - 3.55 [facility] CVE RISK CHOL/HDL LDL/HDLMEN: 1/2 AVERAGE 3.43 1.00 AVERAGE 4.97 3.55 2X AVERAGE 9.55 6.25 3X AVERAGE 23.99 7.99WOMEN: 1/2 AVERAGE 3.27 1.47 AVERAGE 4.44 3.22 2X AVERAGE 7.05 5.03 3X AVERAGE 11.04 6.14 ID Date Data Source [id number] 05/25/2020 08:35:00 AM EDT [facility] Name Value Range Interpretation Code Description Data Cassandra rce(s) Supporting Document(s) Hemoglobin A1c/Hemoglobin.total in Blood 5.6 % 4.4 - 6.1 [facility] {A1]{HB] ID Date Data Source [id number] 05/25/2020 08:23:00 AM EDT [facility] Name Value Range Interpretation Code Description Data Cassandra rce(s) Supporting Document(s) CBC W/AUTOMATED DIFF [facility] COMPLETE BLOOD COUNT Leukocytes [#/volume] in Blood by Automated count 7.5 10^3/uL 4.2 - 1 1.0 [facility] Erythrocytes [#/volume] in Blood by Automated count 4.89 10^6/uL 4. 50 - 6.30 [facility] Hemoglobin [Mass/volume] in Blood 14.0 g/dL 14.0 - 16.0 [facility] Hematocrit [Volume Fraction] of Blood by Automated count 41.3 % 4 1.0 - 51.0 [facility] Erythrocyte mean corpuscular volume [Entitic volume] by Auto mated count 84.5 fL 80.0 - 94.0 [facility] Erythrocyte mean corpuscular hemoglobin [Entitic mass] by Automated count 28.6 pg 27.0 - 34.0 [facility] Erythrocyte mean corpuscular hemoglobin concentration [Mass/volume] by Automated count 33.9 g/dL 31.0 - 36.0 [facility] Erythrocyte distribution width [Ratio] by Automated count 13.2 % 11.5 - 14.8 [facility] Platelets [#/volume] in Blood by Automated count 168 10^3/uL 150 - 45 0 [facility] Platelet mean volume [Entitic volume] in Blood by Automated count 9.7 fL 7.4 - 10.4 [facility] Neutrophils/100 leukocytes in Blood by Automated count 76.9 % 37. 0 - 80.0 [facility] Lymphocytes/100 leukocytes in Blood by Manual count 15.6 % 25.0 - 40.0 L [facility] Monocytes/100 leukocytes in Blood by Automated count 4.8 % 3.0 - 8.0 [facility] Eosinophils/100 leukocytes in Blood by Automated count 2.0 % 0.0 - 7.0 [facility] Basophils/100 leukocytes in Blood by Automated count 0.3 % 0.0 - 2.0 [facility] %IG 0.4 % 0.0 - 0.0 H [facility] %NRBC 0.0 % 0.0 - 0.0 [facility] Neutrophils [#/volume] in Blood by Automated count 5.79 10^3/uL 2.00 - 6.90 [facility] Lymphocytes [#/volume] in Blood by Automated count 1.17 10^3/uL 0.60 - 3.40 [facility] Monocytes [#/volume] in Blood by Automated count 0.36 10^3/uL 0.00 - 0.90 [facility] Eosinophils [#/volume] in Blood by Automated count 0.15 10^3/uL 0.00 - 0.70 [facility] Basophils [#/volume] in Blood by Automated count 0.02 10^3/uL 0.00 - 0.20 [facility] #IG 0.03 10^3/uL 0.00 - 0.10 [facility] #NRBC 0.00 10^3/uL 0.00 - 0.00 [facility] MANUAL DIFF NOT INDICATED [facility] RBC MORPH NOT INDICATED [facility] Procedure Social History Code Duration Value Status Description Data Source(s ) Smoking 05/21/2020 12:00:00 AM EDT Never Smoker completed Never S moker eCW1 (Formerly [facility]) Smoking 05/21/2020 12:00:00 AM EDT Never Smoker completed Never S moker eCW1 (Formerly [facility]) Smoking 05/21/2020 12:00:00 AM EDT Never Smoker completed Never S moker eCW1 (Formerly [facility]) Smoking 11/24/2019 12:00:00 AM EDT Never Smoker completed Never S moker eCW1 (Formerly [facility]) Smoking 11/14/2019 12:00:00 AM EDT Patient has never smoked co mpleted Patient has never smoked [facility] ([facility]) Vital Signs ID Date Data Source UNK Name Value Range Interpretation Code Description Data Source(s) Body surface area Derived from formula 2.13 m2 2.[address] [facility] Body weight 105.689 kg 105.689 kg [facility] ([facility]) [place] body weight 142 [lb_av] 142 [lb_av] [facility] T ([facility]) Body mass index (BMI) [Ratio] 37.6 kg/m2 37.6 k g/m2 [facility] ([facility]) Body weight 233.00 [lb_av] 233.00 [lb_av] [facility] ([facility]) Body height 66 [in_i] 66 [in_i] [facility] ([facility]) 5'6" Diastolic blood pressure 84 mm[Hg] 84 mm[Hg] [facility] ([facility]) Systolic blood pressure 144 mm[Hg] 144 mm[Hg] [facility] Body surface area Derived from formula 2.13 m2 2.13 m2 [facility] ([facility]) Body weight 104.895 kg 104.895 kg [facility] ([facility]) [place] body weight 142 [lb_av] 142 [lb_av] [facility] ([facility]) Body mass index (BMI) [Ratio] 37.3 kg/m2 37.3 k g/m2 [facility] ([facility]) Body weight 231.25 [lb_av] 231.25 [lb_av] [facility] ([facility]) Body height 66 [in_i] 66 [in_i] [facility] ([facility]) 5'6" Body temperature 98.0 [degF] 98.0 [degF] [facility] ([facility]) Oxygen saturation in Arterial blood by Pulse oximetry 98 % 98 % [facility] ([facility]) Heart rate 62 /min 62 /min [facility] ([facility]) Diastolic blood pressure 90 mm[Hg] 90 mm[Hg] [facility] ([facility]) Systolic blood pressure 130 mm[Hg] 130 mm[Hg] M [facility] ([facility]) Body weight 104.328 kg 104.328 kg [facility] ([facility]) Body mass index (BMI) [Ratio] 37.1 kg/m2 37.1 k g/m2 [facility] ([facility]) Body weight 230.00 [lb_av] 230.00 [lb_av] [facility] T ([facility]) Body height 66 [in_i] 66 [in_i] [facility] ([facility]) 5'6" Systolic blood pressure 155 mm[Hg] 155 mm[Hg] e CW1 ([facility]ly [facility]) Body temperature [degF] eCW1 (Counts include 234 beds at the [facility]) Respiratory rate 16 /min 16 /min eCW1 (Counts include 234 beds at the [facility]) Heart rate 65 /min 65 /min eCW1 ([facility]) Body mass index (BMI) [Ratio] 20.36 kg/m2 20.36 kg/m2 eCW1 ([facility]) Body height 67 [in_us] 67 [in_us] eCW1 ([facility]) Body weight Measured 130 [lb_av] 130 [lb_av] eC W1 ([facility]ly [facility]) Diastolic blood pressure 77 mm[Hg] 77 mm[Hg] eCW1 ([facility]ly [facility])
--- OUTSIDE RECORDS SUMMARY | 2020-09-03 07:13 | CCD ---
Author Author [facility] Organization [facility] [employer] Address Unknown Phone Unavailable Care Team Providers Care Vendor Manager Name Role Phone Krzysztof Green Unavailable PROBLEMS Type Condition ICD9-CM Code [id number] Code Onset Dates Condition S tatus SNOMED Code Notes Problem Adverse effect of angiotensi x-kevdjwijfo-xzhlqz inhibitors, initial encounter T46.4X5A Active 839774924 Problem Erectile dysfunction, unspecified erectile dysfunction typ e N52.9 Active 856009760 Problem Mixed hyperlipidemia E78.2 Active 039706426 Problem Cough R05 Active 616643576 Problem Essential hypertension I10 Active 55806403 Problem Body mass index (BMI) of 35.0-35.9 in adult Z68.35 Active 646448688 Problem Obesity (BMI 35.0-39.9 without comorbidity) E66.9 Active 982912953 Problem Influenza vaccination declined Z28.21 Active 3 65526350 Problem Dyslipidemia E78.5 Active 041739204 Problem Bilateral hearing loss, unspecified hearing loss type H91.93 Active 50745943 Problem Morbid (severe) obesity due to excess calories E66 .01 Active 293328894 Problem Hand arthritis M19.049 Active 279697889 Problem 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 A ctive 8656937987545 Problem Prostate cancer screening Z12.5 Active 848623 002 Problem Arthritis M19.90 Active 0571876 ALLERGIES Allergen (clinical drug ingredient) Drug/Non Drug Allergy do cumented on EMR Reaction Allergy Type Onset Date Status Stanley inhibitor (for allergies use only) dry cough Drug All ergy Active ENCOUNTERS from 1950 to 2020-06-19 Encounter Location Date Provider Diagnosis [facility] [address] [place] [address] May, 2020 Krzysztof Green IMMUNIZATIONS Vaccine Route Administration Date Status Influenza [...] Education Language: Question Answer Notes Languages spoken: Omani Hoahaoism: Question Answer Notes Hoahaoism 21 [facility] and Alcohol Question Answer Notes Total [...] Information RESULTS No Results REASON FOR VISIT No Information MEDICAL (GENERAL) HISTORY Type Description Date Medical [...] fx skull 05/1966 Surgical History colonoscopy - [place] 2014 Hospitalization History [place] - hernia Goals Section No Information Health Concerns No Information MEDICAL EQUIPMENT No Information MENTAL STATUS No Information FUNCTIONAL STATUS No Information ASSESSMENTS No Information PLAN OF TREATMENT Next Appt Details Provider Name:ZaneAngeline Green, 2020-11-20 01:00:00 PM, [address] [place], [address], Insurance Providers Payer Name Payer Address Payer Phone Insured Name Patient Relati onship to Insured Coverage Start Date Coverage End Date [facility] [employer] [address] [address] [facility] [phone] [phone] [address]
--- OUTSIDE RECORDS SUMMARY | 2020-09-03 07:13 | CCD ---
Author Author [facility] Organization [facility] [employer] Address Unknown Phone Unavailable Care Team Providers Care Pulp House Supervisor Name Role Phone Krzysztof Green Unavailable PROBLEMS Type Condition ICD9-CM Code [id number] Code Onset Dates Condition S tatus SNOMED Code Notes Problem Adverse effect of angiotensi u-eflocsqlkh-oodgzv inhibitors, initial encounter T46.4X5A Active 610922551 Problem Erectile dysfunction, unspecified erectile dysfunction typ e N52.9 Active 985070889 Problem Mixed hyperlipidemia E78.2 Active 128511970 Problem Cough R05 Active 311528679 Problem Essential hypertension I10 Active 99083031 Problem Body mass index (BMI) of 35.0-35.9 in adult Z68.35 Active 284356461 Problem Obesity (BMI 35.0-39.9 without comorbidity) E66.9 Active 049799784 Problem Influenza vaccination declined Z28.21 Active 3 86651784 Problem Dyslipidemia E78.5 Active 161131135 Problem Bilateral hearing loss, unspecified hearing loss type H91.93 Active 72972816 Problem Morbid (severe) obesity due to excess calories E66 .01 Active 419104337 Problem Hand arthritis M19.049 Active 979719471 Problem 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 A ctive 7219871607643 Problem Prostate cancer screening Z12.5 Active 601389 002 Problem Arthritis M19.90 Active 5921242 ALLERGIES Allergen (clinical drug ingredient) Drug/Non Drug Allergy do cumented on EMR Reaction Allergy Type Onset Date Status Stanley inhibitor (for allergies use only) dry cough Drug All ergy Active ENCOUNTERS from 1950 to 2020-07-19 Encounter Location Date Provider Diagnosis [facility] [address] [place] [address] Jun, 2020 Krzysztof Green IMMUNIZATIONS Vaccine Route Administration [...] Education Language: Question Answer Notes Languages spoken: Swiss Buddhist: Question Answer Notes Buddhist 21 [facility] and Alcohol Question Answer Notes Total [...] MEDICATIONS Medication SIG (Take, Route, Frequency, Duration) Notes Start Da te End Date Status Metoprolol Tartrate 50 MG 1 tablet with food Twice a d ay Orally 90 day(s) Orally Twice a day for 90 Active Atorvastatin Calcium 40 MG 1 tablet Orally before bedtime Active Chlorthalidone 50 MG 1 tablet in the morning Orally Once a day Active Maria Fernanda 128 5 % 1 drop into each eye Ophthalmic Once a day Active Losartan Potassium 100 MG 1 tablet Orally Once a day Active Viagra 100 MG 1 tablet as needed Orally On ce a day-start with 1/4 tablet and titrate up as needed December, Not-Taking Sodium Chloride (Hypertonic) 1 drop into each eye Ophthalmic Twice a day Active Multivitamin Adult - Orally May, Ac tive Shingrix 50 mcg/0.5 mL As Directed Intramuscular as directed for 2 doses Nov, Not-Taking Timolol Maleate 0.5 % 1 drop into each eye Ophthalmic Once a day Active PROCEDURES No Information RESULTS No Results REASON FOR VISIT Colonoscopy. MEDICAL (GENERAL) HISTORY Type Description Date Medical [...] fx skull 05/1966 Surgical History colonoscopy - [place] 2014 Hospitalization History [place] - hernia Goals Section No Information Health Concerns No Information MEDICAL EQUIPMENT No Information MENTAL STATUS No Information FUNCTIONAL STATUS No Information ASSESSMENTS No Information PLAN OF TREATMENT Medication Medication Name Sig Start Date Stop Date Metoprolol Tartrate 50 MG 1 tablet with food Twice a d ay Orally 90 day(s) Orally Twice a day for 90 Next Appt Details Provider Name:Krzysztof Green, 2020-11-20 01:00:00 PM, [address] [place], [address], Insurance Providers Payer Name Payer Address Payer Phone Insured Name Patient Relati onship to Insured Coverage Start Date [facility]age End Date [facility] [address] [address] [facility] [address] [phone] [address]
--- OUTSIDE RECORDS SUMMARY | 2020-09-03 07:13 | CCD | Continuity of Care Document ---
Author Author [facility] Organization Unknown Address [address] [place] [address], [address] [place] [address] Phone [phone] Care Team Providers Care Traffic Representative Name Role Phone PeterKrzysztof D.O. AUTM [phone] Problems Active Problems Provider Date Essential hypertension Onset: 08/19/2019 Social History Type Date Description Comments Sex Unknown ETOH Use Denies alcohol use Tobacco Use Reviewed: 11/14/19 Patient has never smoked Smoking Status Reviewed: 11/14/19 Patient has never smoked Allergies, Adverse Reactions, Alerts Description No Known Drug Allergies Medications Active Medications SIG Qnty Indications Ordering Provide r Date Suprep Bowel Prep Kit 17.5-3.13-1.6GM/177ML Solution take per doctor's bowel prep instructions. 354ml Z12.1 1 Ryan Aguirre MD 07/30/[address] take 4 tabs by mouth prior to procedure per instructions. 4tabs Z12.11 Ryan Aguirre MD 07/30/2020 Atorvastatin Calcium 40mg Tablets 1 tab by mouth every day 30tabs Unknown CPAP +10 marras Unknown Chlorthalidone 50mg Tablets 1 tab by mouth every day Unknown Losartan Potassium 100mg Tablets 1 tab by mouth everyday Unknown Metoprolol Tartrate 50mg Tablets 1 by mouth twice a day Unknown Multivitamin Adult 1 tab by mouth everyday Unkn own Timolol Maleate 0.5% (Daily) Solut ion Daily to both eyes Unknown Fish Oil 1000mg Capsules 1 by mouth every day Unknown Immunizations Description No Information Available Vital Signs Date Vital Result Comment 07/30/2020 9:20am BP Systolic 144 mmHg BP Diastolic 84 mmHg Height 66 inches 5'6" Weight 233.00 lb BMI (Body Mass Index) 37.6 kg/m2 [place] Body Weight 142 lb Weight 105.689 kg BSA (Body Surface Area) 2.13 m2 11/14/2019 11:33am BP Systolic 130 mmHg BP Diastolic 90 mmHg Heart Rate 62 /min O2 % BldC Oximetry 98 % Body Temperature 98.0 F Height 66 inches 5'6" Weight 231.25 lb BMI (Body Mass Index) 37.3 kg/m2 [place] Body Weight 142 lb Weight 104.895 kg BSA (Body Surface Area) 2.13 m2 Results Description No Information Available Procedures Description No Information Available Medical Devices Description No Information Available Encounters Description No Information Available Assessments Date Code Description Provider 07/30/2020 Z12.11 Encounter for screening for nathen gnant neoplasm of colon MARIAN Mcelroy 07/30/2020 Z86.010 Personal history of colonic poly ps MARIAN Mcelroy Plan of Treatment Future Appointment(s):* 11/14/2020 11:45 am - [facility]Th[facility]acic 07/30/2020 - MARIAN Mcelroy* Z12.11 Encounter for screening for malignant neoplasm of colon * Z86.010 Personal history of colonic polyps * * New Medication:* Suprep Bowel Prep Kit 17.5-3.13-1.6 GM/177ML * Dulcolax 5 mg * New Orders:* Colonoscopy, Ordered: 07/30/20 * Comments:* Will arrange for colonoscopy. Reviewed risks and benefits of the procedure, as well as other options, with the patient. Bowel prep procedure was discussed with patient, as well as risks and side effects associated with the bowel prep. Patient verbalized understanding of all of the above and is in agreement to proceed. Patient will seek medical attention for any acute changes. Will monitor. * Follow up:* As scheduled, sooner if needed. Functional Status Description No Information Available Mental Status Description No Information Available Referrals Refer to Reason for Referral Status Appt Date Bharat Moreau M.D. COLO SCREENING Scheduled 07/[address] [place] [address], [address] [place] [address] [phone]
[2020-09-03] MEDS ORDERED: propofoL 200 MG/20 ML VIAL As Ordered ONE (07:54)
[2020-09-03] MEDS ORDERED: LIDOCAINE 2% 100MG/5ML SDV (FOR ANES.) As Ordered ONE (07:54)
--- NOTE | 2020-09-03 09:22 | ROOR ---
Patient Name: Ruiz Braxton Procedure Date: 09/03/2020 7:41 AM Date of : 1950 Age: 70 Room: [facility] Gender: Male Note Status: Finalized Procedure: Colonoscopy Indications: High risk colon cancer surveillance: Personal history of colonic polyps Providers: Bharat Moreau MD Referring MD: Krzysztof Green DO Requesting Provider: Medicines: Monitored Anesthesia Care Complications: No immediate complications. Procedure: Pre-Anesthesia Assessment: - Prior to the procedure, a History and Physical was performed, and patient medications and allergies were reviewed. The patient is competent. The risks and benefits of the procedure and the sedation options and risks were discussed with the patient. All questions were answered and informed consent was obtained. Patient identification and proposed procedure were verified by the physician, the nurse and the anesthesiologist in the procedure room. Mental Status Examination: alert and oriented. Airway Examination: normal oropharyngeal airway and neck mobility. Respiratory Examination: clear to auscultation. CV Examination: normal. Prophylactic Antibiotics: The patient does not require prophylactic antibiotics. Prior Anticoagulants: The patient has taken no previous anticoagulant or antiplatelet agents. ASA Grade Assessment: II - A patient with mild systemic disease. After reviewing the risks and benefits, the patient was deemed in satisfactory condition to undergo the procedure. The anesthesia plan was to use monitored anesthesia care (MAC). Immediately prior to administration of medications, the patient was re-assessed for adequacy to receive sedatives. The heart rate, respiratory rate, oxygen saturations, blood pressure, adequacy of pulmonary ventilation, and response to care were monitored throughout the procedure. The physical status of the patient was re-assessed after the procedure. The Colonoscope was introduced through the anus and advanced to the terminal ileum, with identification of the appendiceal orifice and IC valve. The colonoscopy was performed without difficulty. The patient tolerated the procedure well. The quality of the bowel preparation was good. The terminal ileum, ileocecal valve, appendiceal orifice, and rectum were photographed. Scope insertion time was 3 minutes. Scope withdrawal time was 9 minutes. The total duration of the procedure was 14 minutes. Findings: The perianal and digital rectal examinations were normal. The terminal ileum appeared normal. Three sessile polyps were found in the transverse colon. The polyps were 6 to 10 mm in size. These polyps were removed with a hot snare. Resection and retrieval were complete. Verification of patient identification for the specimen was done by the physician and nurse using the patient's name, date and medical record number. Estimated blood loss was minimal. Multiple small and large-mouthed diverticula were found from sigmoid to transverse colon. There was no evidence of diverticular bleeding. Non-bleeding external and internal hemorrhoids were found during retroflexion. The hemorrhoids were medium-sized. Impression: - The examined portion of the ileum was normal. - Three 6 to 10 mm polyps in the transverse colon, removed with a hot snare. Resected and retrieved. - Moderate diverticulosis from sigmoid to transverse colon. There was no evidence of diverticular bleeding. - Non-bleeding external and internal hemorrhoids. Recommendation: - Patient has a contact number available for emergencies. The signs and symptoms of potential delayed complications were discussed with the patient. Return to normal activities tomorrow. Written discharge instructions were provided to the patient. - High fiber diet. - Continue present medications. - Await pathology results. - Use fiber, for example Citrucel, Fibercon, Konsyl or Metamucil. - Repeat colonoscopy in 3 years for surveillance based on pathology results. - Telephone GI clinic for pathology results in 2 weeks. - Return to primary care physician in 1 week. Procedure Code(s): --- Professional --- 48804, Colonoscopy, flexible; with removal of tumor(s), polyp(s), or other lesion(s) by snare technique Diagnosis Code(s): --- Professional --- Z86.010, Personal history of colonic polyps K64.8, Other hemorrhoids K63.5, Polyp of colon K57.30, Diverticulosis of large intestine without perforation or abscess without bleeding CPT copyright 2019 [employer]. All rights reserved. The codes documented in this report are preliminary and upon motorized squad lieutenant review may be revised to meet current compliance requirements. Bharat Moreau MD Bharat Moreau MD 09/03/2020 9:22:13 AM Electronically signed by Bharat Moreau MD Number of Addenda: 0 Note Initiated On: 09/03/2020 7:41 AM Estimated Blood Loss: Estimated blood loss was minimal.
[2020-09-03 09:30] VITALS: BP 134/88
== END 2020-09-03 09:43 | disposition home or self-care (01) ==
LOC: M OPP 07:06
PROVIDERS: ATTEND Internal Medicine Gastroenterology
DX: Z12.11 Encounter for screening for malignant neoplasm of colon (principal); Z86.010 Personal history of colon polyps; K63.5 Polyp of colon; K64.8 Other hemorrhoids; K57.30 Diverticulosis of large intestine without perforation or abscess without bleeding

== ENCOUNTER → 2021-05-22 | Outpatient (CLI) | payer MEDICARE ==
[~2021-05-22] MED LIST changes: -NS 1,000 ML IV ONE
[2021-05-22 13:46] LABS: BLOOD UREA NITROGEN 21 MG/DL (7-18); CALCIUM LEVEL 9.7 MG/DL (8.8-10.2); CARBON DIOXIDE LEVEL 27 MEQ/L (21-32); CHLORIDE LEVEL 106 MEQ/L (98-107); CHOLESTEROL LEVEL 145 MG/DL (<200); CHOLESTEROL RISK RATIO 3.222 (<5); CREATININE FOR GFR 1.03 MG/DL (0.70-1.30); GLOMERULAR FILTRATION RATE > 60.0 (>42); GLUCOSE, FASTING 111 MG/DL (70-100); HDL CHOLESTEROL 45 MG/DL (>40); LDL CHOLESTEROL 75 MG/DL (<100); NON-HDL-C 100 MG/DL; POTASSIUM SERUM 3.3 MEQ/L (3.5-5.1); SODIUM LEVEL 141 MEQ/L (136-145); TRIGLYCERIDES LEVEL 126 MG/DL (<150)
[2021-05-22 18:21] LABS: HEMOGLOBIN A1c 5.8 %
== END ==
LOC: M WUC 09:19
PROVIDERS: ATTEND Family Medicine
DX: R73.01 Impaired fasting glucose (principal); E78.5 Hyperlipidemia, unspecified

== ENCOUNTER → 2021-12-05 | Outpatient (CLI) | payer MEDICARE ==
[~2021-12-05] MED LIST changes: +LOSA100T45 PO; -LOSA100T50 PO
== END ==
LOC: M CARPUL 11:12
PROVIDERS: ATTEND Family Medicine
DX: R06.02 Shortness of breath (principal); I34.8 Other nonrheumatic mitral valve disorders

== ENCOUNTER → 2022-05-19 | Outpatient (CLI) | payer MEDICARE ==
[2022-05-19 17:51] LABS: ALBUMIN 3.6 GM/DL (3.2-5.2); ALT/SGPT 42 U/L (12-78); BILIRUBIN,TOTAL 0.6 MG/DL (0.2-1.0); BLOOD UREA NITROGEN 18 MG/DL (7-18); CALCIUM LEVEL 9.3 MG/DL (8.8-10.2); CARBON DIOXIDE LEVEL 28 MEQ/L (21-32); CHLORIDE LEVEL 104 MEQ/L (98-107); CHOLESTEROL LEVEL 140 MG/DL (<200); CHOLESTEROL RISK RATIO 3.255 (<5); CREATININE FOR GFR 1.06 MG/DL (0.70-1.30); GLOMERULAR FILTRATION RATE > 60.0 (>42); GLUCOSE, FASTING 123 MG/DL (70-100); HDL CHOLESTEROL 43 MG/DL (>40); LDL CHOLESTEROL 70 MG/DL (<100); NON-HDL-C 97 MG/DL; POTASSIUM SERUM 3.3 MEQ/L (3.5-5.1); SODIUM LEVEL 138 MEQ/L (136-145); TOTAL PROTEIN 6.9 GM/DL (6.4-8.2); TRIGLYCERIDES LEVEL 135 MG/DL (<150)
[2022-05-19 18:21] LABS: HEMOGLOBIN A1c 6.4 %
== END ==
LOC: M WUC 11:37
PROVIDERS: ATTEND Family Medicine
DX: E78.2 Mixed hyperlipidemia (principal); I10 Essential (primary) hypertension; Z68.35 Body mass index [BMI] 35.0-35.9, adult

== ENCOUNTER → 2022-05-21 | Outpatient (CLI) | payer MEDICARE ==
[2022-05-21 12:45] LABS: APPEARANCE, URINE MANUAL CLEAR (CLEAR); COLOR, URINE MANUAL YELLOW (YELLOW)
[2022-05-21 12:46] LABS: BILIRUBIN, URINE MANUAL NEGATIVE (NEGATIVE); BLOOD URINE MANUAL NEGATIVE (NEGATIVE); GLUCOSE, URINE (UA) MANUAL NEGATIVE (NEGATIVE); KETONE, URINE MANUAL NEGATIVE (NEGATIVE); LEUKOCYTE ESTERASE, URINE MAN NEGATIVE (NEGATIVE); NITRITE, URINE MANUAL NEGATIVE (NEGATIVE); PROTEIN, URINE MANUAL NEGATIVE (NEGATIVE); UROBILINOGEN, URINE MANUAL NORMAL (NORMAL)
[2022-05-21 14:43] LABS: MALB URINE SIEMENS 7.1 MG/L; MAU/CREAT RATIO 6.3 MCG/MG (0.0-30.0)
== END ==
LOC: M WUC 10:07
PROVIDERS: ATTEND Family Medicine
DX: M54.42 Lumbago with sciatica, left side (principal); R35.0 Frequency of micturition; M47.816 Spondylosis without myelopathy or radiculopathy, lumbar region

== ENCOUNTER → 2022-12-08 | Outpatient (CLI) | payer MEDICARE ==
[~2022-12-08] MED LIST changes: +SODI1SOL4 OU; -SODI5OPD OU; +TIMO0.5S20 OU; -TIMO0.5S29 OU
[2022-12-08 13:18] LABS: ALBUMIN 3.7 G/DL (3.2-5.2); ALKALINE PHOSPHATASE 77 U/L (46-116); ALT/SGPT 40 U/L (7.0-40); AST/SGOT 18 U/L (<34); BILIRUBIN,TOTAL 0.7 MG/DL (0.3-1.2); BLOOD UREA NITROGEN 16 MG/DL (9-23); CALCIUM LEVEL 9.2 MG/DL (8.3-10.6); CARBON DIOXIDE LEVEL 30 MMOL/L (20-31); CHLORIDE LEVEL 104 MMOL/L (98-107); CREATININE FOR GFR 1.02 MG/DL (0.70-1.30); GLOMERULAR FILTRATION RATE > 60.0 (>42); GLUCOSE, FASTING 121 MG/DL (74-106); POTASSIUM SERUM 3.5 MMOL/L (3.5-5.1); SODIUM LEVEL 138 MMOL/L (136-145); TOTAL PROTEIN 6.8 G/DL (5.7-8.2)
[2022-12-08 14:42] LABS: HEMOGLOBIN A1c 6.1 % (4.0-6.0)
== END ==
LOC: M WUC 10:14
PROVIDERS: ATTEND Family Medicine
DX: R73.03 Prediabetes (principal); R05.9 Cough, unspecified; I70.0 Atherosclerosis of aorta

== ENCOUNTER → 2022-12-26 | Outpatient (REF) | payer MEDICARE ==
[~2022-12-26] MED LIST changes: -LOSA100T45 PO; +LOSA100T46 PO
[2022-12-26 18:24] LABS: APPEARANCE, URINE CLEAR (CLEAR); BACTERIA, URINE AUTO NEGATIVE (NEGATIVE); BILIRUBIN, URINE AUTO NEGATIVE (NEGATIVE); BLOOD, URINE BLOOD NEGATIVE (NEGATIVE); COLOR, URINE YELLOW (YELLOW); GLUCOSE, URINE (UA) AUTO NEGATIVE (NEGATIVE); KETONE, URINE AUTO NEGATIVE (NEGATIVE); LEUKOCYTE ESTERASE, URINE AUTO NEGATIVE (NEGATIVE); NITRITE, URINE AUTO NEGATIVE (NEGATIVE); PROTEIN, URINE AUTO NEGATIVE (NEGATIVE); RBC, URINE AUTO 0 /HPF (0-3); SPECIFIC GRAVITY URINE AUTO 1.012 (1.002-1.035); SQUAMOUS EPITHELIAL CELL UR AU 0 /HPF (0-6); UROBILINOGEN, URINE AUTO 0.2 mg/dL (0.0-2.0); WBC, URINE AUTO 0 /HPF (0-3)
== END ==
LOC: M SMT 17:13
PROVIDERS: ATTEND Urology
DX: N40.0 Benign prostatic hyperplasia without lower urinary tract symptoms (principal)

== ENCOUNTER → 2023-01-05 | Outpatient (CLI) | payer MEDICARE ==
[~2023-01-05] MED LIST changes: +E-Z-GAS II EFFERVESCENT PACKET (SODIUM BICARB./CITRIC ACID/SIMETHICONE) As Ordered ONE; +E-Z-HD 98% w/w 340GM SUSP BTL As Ordered ONE; +E-Z-PAQUE 96% w/w SUSP 176GM BTL As Ordered ONE
== END ==
LOC: M RAD 09:30
PROVIDERS: ATTEND Internal Medicine Gastroenterology
DX: R13.10 Dysphagia, unspecified (principal); K44.9 Diaphragmatic hernia without obstruction or gangrene; K22.89 Other specified disease of esophagus

== ENCOUNTER → 2023-01-14 | Outpatient (CLI) | payer MEDICARE ==
[~2023-01-14] MED LIST changes: -E-Z-GAS II EFFERVESCENT PACKET (SODIUM BICARB./CITRIC ACID/SIMETHICONE) As Ordered ONE; -E-Z-HD 98% w/w 340GM SUSP BTL As Ordered ONE; -E-Z-PAQUE 96% w/w SUSP 176GM BTL As Ordered ONE; +ISOVUE-370 76% 100ML VIAL As Ordered ONE
== END ==
LOC: M RAD 10:23
PROVIDERS: ATTEND Family Medicine
DX: J84.10 Pulmonary fibrosis, unspecified (principal); R91.8 Other nonspecific abnormal finding of lung field; M25.561 Pain in right knee; R05.9 Cough, unspecified
CPT/HCPCS: 71260; 73564; Q9967

== ENCOUNTER → 2023-01-14 | Outpatient (CLI) | payer MEDICARE ==
[~2023-01-14] MED LIST changes: -ISOVUE-370 76% 100ML VIAL As Ordered ONE
== END ==
LOC: M WUC 12:06
PROVIDERS: ATTEND Nurse Practitioner Family
DX: M25.561 Pain in right knee (principal)

== ENCOUNTER → 2023-02-05 | Day surgery (SDC) | payer MEDICARE ==
[~2023-02-05] VITALS: Ht 170.2 cm; Wt 109.8 kg
[~2023-02-05] MED LIST changes: +MELO15TA28 PO; +NS 1,000 ML IV ONE; +POTA-149 PO; +TAMS1CAP17 PO; +XALA0.007 OU
== END | disposition home or self-care (01) ==
LOC: M OPP 12:05
PROVIDERS: ATTEND Internal Medicine Gastroenterology
DX: R13.10 Dysphagia, unspecified (principal); Z53.8 Procedure and treatment not carried out for other reasons

== ENCOUNTER → 2023-09-10 | Outpatient (CLI) | payer MEDICARE ==
[~2023-09-10] MED LIST changes: -NS 1,000 ML IV ONE
== END ==
LOC: M WUC 10:08
PROVIDERS: ATTEND Urology
DX: Z12.5 Encounter for screening for malignant neoplasm of prostate (principal)

== ENCOUNTER → 2023-09-10 | Outpatient (CLI) | payer MEDICARE ==
[~2023-09-10] MED LIST changes: +ACET325C5 PO; +QC F0.52 PO
[2023-09-10 13:24] LABS: BASO % 0.3 % (0.0-1.0); EOS # 0.2 10^3/uL (0.0-0.5); EOS % 1.7 % (0.0-3.0); HEMATOCRIT 42.3 % (42.0-52.0); HEMOGLOBIN 15.3 g/dl (13.5-17.5); LYMPH # 1.7 10^3/uL (1.5-5.0); LYMPH % 19.1 % (24.0-44.0); MEAN CORPUSCULAR HEMOGLOBIN 32.1 pg (27.0-33.0); MEAN CORPUSCULAR HGB CONC 36.2 g/dl (32.0-36.5); MEAN CORPUSCULAR VOLUME 88.9 fl (80.0-96.0); MONO # 0.5 10^3/uL (0.0-0.8); MONO % 5.1 % (2.0-8.0); NEUTROPHILS # 6.7 10^3/uL (1.5-8.5); NEUTROPHILS % 73.4 % (36.0-66.0); PLATELET COUNT, AUTOMATED 179 10^3/uL (150-450); RED BLOOD COUNT 4.76 10^6/uL (4.30-6.10); WHITE BLOOD COUNT 9.1 10^3/uL (4.0-10.0)
[2023-09-10 13:32] LABS: FREE T4 1.02 NG/DL (0.89-1.76); HEMOGLOBIN A1c 6.3 % (4.0-6.0); THYROID STIMULATING HORMONE 0.932 uIU/ML (0.55-4.78); TOTAL 25(OH) VITAMIN D 36.8 NG/ML (20.0-100.0)
[2023-09-10 13:34] LABS: VITAMIN B12 LEVEL 650 PG/ML (211-911)
[2023-09-10 13:36] LABS: ALBUMIN 3.8 G/DL (3.2-5.2); ALKALINE PHOSPHATASE 76 U/L (46-116); ALT/SGPT 48 U/L (7.0-40); AST/SGOT 21 U/L (<34); BLOOD UREA NITROGEN 18 MG/DL (9-23); CALCIUM LEVEL 9.7 MG/DL (8.3-10.6); CARBON DIOXIDE LEVEL 31 MMOL/L (20-31); CHLORIDE LEVEL 104 MMOL/L (98-107); CHOLESTEROL LEVEL 132 MG/DL (<200); CHOLESTEROL RISK RATIO 3.81 (<5); CREATININE FOR GFR 0.94 MG/DL (0.70-1.30); GLOMERULAR FILTRATION RATE > 60.0 (>42); GLUCOSE, FASTING 127 MG/DL (74-106); HDL CHOLESTEROL 34.6 MG/DL (>40); LDL CHOLESTEROL 70.6 MG/DL (<100); NON-HDL-C 97.4 MG/DL; POTASSIUM SERUM 3.4 MMOL/L (3.5-5.1); SODIUM LEVEL 139 MMOL/L (136-145); TOTAL PROTEIN 6.6 G/DL (5.7-8.2); TRIGLYCERIDES LEVEL 134 MG/DL (<150)
[2023-09-10 13:38] LABS: FOLATE > 24.00 NG/ML (>5.4)
== END ==
LOC: M WUC 10:05
PROVIDERS: ATTEND Family Medicine
DX: R73.03 Prediabetes (principal); E78.2 Mixed hyperlipidemia; E66.9 Obesity, unspecified; Z68.38 Body mass index [BMI] 38.0-38.9, adult; Z12.5 Encounter for screening for malignant neoplasm of prostate
CPT/HCPCS: 36415; 80053; 80061; 82306; 82607; 82746; 83036; 84439; 84443; 85025; G0103

== ENCOUNTER → 2023-09-15 | Outpatient (CLI) | payer MEDICARE ==
[~2023-09-15] MED LIST changes: -ACET325C5 PO; -QC F0.52 PO
== END ==
LOC: M WUC 10:11
PROVIDERS: ATTEND Chiropractor
DX: M25.551 Pain in right hip (principal); M16.11 Unilateral primary osteoarthritis, right hip

== ENCOUNTER 2023-10-08 09:46 | Day surgery (SDC) | payer BC, MEDICARE ==
[~2023-10-08] VITALS: Ht 167.6 cm; Wt 107.0 kg
[2023-10-08] MEDS: NS 1,000 ML IV ONE (06:00)
[~2023-10-08 09:46] MED LIST changes: +ACET325C5 PO; +QC F0.52 PO
[2023-10-08] MEDS ORDERED: LIDOCAINE 2% 100MG/5ML SDV (FOR ANES.) As Ordered ONE (12:30)
[2023-10-08] MEDS ORDERED: propofoL 200 MG/20 ML VIAL As Ordered ONE (12:30)
[2023-10-08 13:12] VITALS: TEMP 97.9
[2023-10-08 13:36] VITALS: BP 159/91; O2SAT 95
== END 2023-10-08 13:55 | disposition home or self-care (01) ==
LOC: M OPP 09:46
PROVIDERS: ATTEND Internal Medicine Gastroenterology
DX: Z86.010 Personal history of colon polyps (principal); K63.5 Polyp of colon; K52.89 Other specified noninfective gastroenteritis and colitis; K64.4 Residual hemorrhoidal skin tags; K64.8 Other hemorrhoids; K57.30 Diverticulosis of large intestine without perforation or abscess without bleeding; K22.89 Other specified disease of esophagus; K22.2 Esophageal obstruction; K44.9 Diaphragmatic hernia without obstruction or gangrene; K29.70 Gastritis, unspecified, without bleeding; R13.10 Dysphagia, unspecified; G47.30 Sleep apnea, unspecified; Z99.89 Dependence on other enabling machines and devices; I35.9 Nonrheumatic aortic valve disorder, unspecified; Z79.02 Long term (current) use of antithrombotics/antiplatelets; Z79.899 Other long term (current) drug therapy

== ENCOUNTER → 2023-10-09 | Outpatient (CLI) | payer MEDICARE | LOC: M PLARAD 14:43 | PROVIDERS: ATTEND Orthopaedic Surgery | DX: M47.896 Other spondylosis, lumbar region (principal); M48.061 Spinal stenosis, lumbar region without neurogenic claudication ==

== ENCOUNTER → 2023-10-26 | Outpatient (CLI) | payer MEDICARE | LOC: M WUC 12:09 | PROVIDERS: ATTEND Family Medicine | DX: R06.02 Shortness of breath (principal) ==

== ENCOUNTER → 2023-12-09 | Outpatient (REF) ==
[2023-12-09 11:49] LABS: COLLAGEN EPINEPHRINE 157 SECONDS (74-162)
== END ==
LOC: M CAHLAB 10:58
PROVIDERS: ATTEND Physical Medicine & Rehabilitation
DX: D69.1 Qualitative platelet defects (principal)

== ENCOUNTER 2023-12-25 08:07 | Day surgery (SDC) | payer MEDICARE ==
[~2023-12-25] VITALS: Ht 167.6 cm; Wt 109.3 kg
[2023-12-25] MEDS: NS 1,000 ML IV ONE (06:00)
[~2023-12-25 08:07] MED LIST changes: +OMEP-173 PO; +PANT40TA29 PO; +POTA1TAB23 PO; +SUCR1TAB56 PO
[2023-12-25] MEDS ORDERED: propofoL 200 MG/20 ML VIAL As Ordered ONE (09:26)
[2023-12-25] MEDS ORDERED: LIDOCAINE 2% INJ 100 MG/5 ML SYRINGE As Ordered ONE (09:26)
[2023-12-25 09:48] VITALS: TEMP 98.9
[2023-12-25 10:10] VITALS: BP 182/86; O2SAT 97
== END 2023-12-25 10:20 | disposition home or self-care (01) ==
LOC: M OPP 08:07
PROVIDERS: ATTEND Internal Medicine Gastroenterology
DX: K22.2 Esophageal obstruction (principal); K44.9 Diaphragmatic hernia without obstruction or gangrene; K29.70 Gastritis, unspecified, without bleeding; R13.10 Dysphagia, unspecified; K21.9 Gastro-esophageal reflux disease without esophagitis; Z90.49 Acquired absence of other specified parts of digestive tract; I10 Essential (primary) hypertension; R73.03 Prediabetes; E78.00 Pure hypercholesterolemia, unspecified; G47.30 Sleep apnea, unspecified; Z79.899 Other long term (current) drug therapy

== ENCOUNTER → 2024-06-28 | Outpatient (CLI) | payer MEDICARE ==
[2024-06-28 12:40] LABS: BASO % 0.3 % (0.0-1.0); EOS # 0.2 10^3/uL (0.0-0.5); EOS % 2.7 % (0.0-3.0); HEMATOCRIT 38.2 % (42.0-52.0); HEMOGLOBIN 12.2 g/dl (13.5-17.5); LYMPH # 1.7 10^3/uL (1.5-5.0); LYMPH % 19.2 % (24.0-44.0); MEAN CORPUSCULAR HEMOGLOBIN 26.5 pg (27.0-33.0); MEAN CORPUSCULAR HGB CONC 31.9 g/dl (32.0-36.5); MEAN CORPUSCULAR VOLUME 82.9 fl (80.0-96.0); MONO # 0.5 10^3/uL (0.0-0.8); MONO % 5.3 % (2.0-8.0); NEUTROPHILS # 6.4 10^3/uL (1.5-8.5); NEUTROPHILS % 72.2 % (36.0-66.0); PLATELET COUNT, AUTOMATED 213 10^3/uL (150-450); RED BLOOD COUNT 4.61 10^6/uL (4.30-6.10); WHITE BLOOD COUNT 8.9 10^3/uL (4.0-10.0)
[2024-06-28 12:44] LABS: C REACTIVE PROTEIN QUANTITATIV < 0.40 MG/DL (<1.0)
[2024-06-28 12:45] LABS: ERYTHROCYTE SEDIMENTATION RATE 15 mm/hr (0-20)
[2024-06-28 12:47] LABS: RHEUMATOID FACTOR QUANT < 3.5 IU/ML (<14)
[2024-06-28 12:50] LABS: URIC ACID 5.5 MG/DL (3.7-9.2)
[2024-06-29 15:02] LABS: ANA SCREEN, IFA NEGATIVE (NEGATIVE)
[2024-07-01 01:42] LABS: CYCLIC CITRULLINATED PEPTIDE < 16 UNITS (<20)
== END ==
LOC: M WUC 10:22
PROVIDERS: ATTEND Orthopaedic Surgery
DX: M25.561 Pain in right knee (principal)